=== PATIENT | female | born 1960 | race Caucasian/White ===

== ENCOUNTER → 2016-11-03 | Outpatient (CLI) | payer BC | LOC: CIMAGING 10:00 | PROVIDERS: ATTEND Physician Assistant | DX: R52 Pain, unspecified (principal) | CPT/HCPCS: 71020-PO; 71100-PO ==

== ENCOUNTER → 2016-11-05 | Outpatient (CLI) | payer BC | LOC: CIMAGING 08:05 | PROVIDERS: ATTEND Physician Assistant | DX: R10.11 Right upper quadrant pain (principal) | CPT/HCPCS: 76705-PO ==

== ENCOUNTER → 2017-04-27 | Outpatient (CLI) | payer BC | LOC: CIMAGING 07:26 | PROVIDERS: ATTEND Physician Assistant | DX: R10.33 Periumbilical pain (principal) | CPT/HCPCS: 76700-PO ==

== ENCOUNTER → 2017-06-10 | Outpatient (CLI) | payer BC | LOC: FIMAGING 12:39 | PROVIDERS: ATTEND Family Medicine | DX: Z12.31 Encounter for screening mammogram for malignant neoplasm of breast (principal) | CPT/HCPCS: G0202 ==

== ENCOUNTER → 2018-01-01 | Outpatient (CLI) | payer BC | LOC: FIMAGING 08:22 | PROVIDERS: ATTEND Family Medicine | DX: M48.02 Spinal stenosis, cervical region (principal); M89.38 Hypertrophy of bone, other site; M99.71 Connective tissue and disc stenosis of intervertebral foramina of cervical region ==

== ENCOUNTER → 2018-04-20 | Outpatient (CLI) | payer BC | LOC: FIMAGING 09:59 | PROVIDERS: ATTEND Family Medicine | DX: R22.42 Localized swelling, mass and lump, left lower limb (principal) ==

== ENCOUNTER → 2018-06-11 | Outpatient (CLI) | payer BC | LOC: FIMAGING 13:42 | PROVIDERS: ATTEND Family Medicine | DX: Z12.31 Encounter for screening mammogram for malignant neoplasm of breast (principal); Z13.820 Encounter for screening for osteoporosis ==